=== PATIENT | female | born 1950 | race Caucasian/White ===

== ENCOUNTER 2021-05-13 09:14 | Outpatient (CLI) | payer MEDICARE, OTHER, SELFPAY ==
--- NOTE | ~2021-05-13 | CT_ITS ---
EXAMINATION: CT abdomen w con DATE: 05/13/2021 09:58 INDICATION: Right upper quadrant abdominal pain. TECHNIQUE: Computed tomography (CT) of the abdomen was performed with 100 mL Omnipaque 350 intravenou s contrast. Automated exposure control and iterative reconstruction technique were employed. The dose -length product was 621.86 mGy-cm. COMPARISON: None. FINDINGS: The visualized portions of the lung bases demonstrate demonstrate minimal atelectasis. Ther e is a peripheral 5 mm nodule in right middle lobe, likely benign. No pleural effusion. The heart siz e is normal. No pericardial effusion. Breast implants are noted. There is a small sliding hiatal jose antonio ia. The liver, gallbladder, spleen, pancreas, and adrenal glands are normal. There are cysts in the k idneys including peripelvic cysts measuring up to 13 mm on the left. There is diverticulosis of the c olon without evidence of diverticulitis. There are no dilated loops of bowel. There are no pathologic ally enlarged lymph nodes. There is no free intraperitoneal fluid. There is moderate lumbar spondylos is and mild thoracic spondylosis. IMPRESSION: 1. Small sliding hiatal hernia. Reviewed, dictated and finalized at location A.
[2021-05-13 09:54] LABS: Estimated Glomerular Filt Rate > 60
== END 2021-05-13 09:15 | disposition home or self-care (01) ==
LOC: ANHIMG 09:19
PROVIDERS: PCP Family Medicine Adolescent Medicine; Visit Provider Family Medicine Adolescent Medicine
DX: R10.11 Right upper quadrant pain (principal); Z85.3 Personal history of malignant neoplasm of breast; K44.9 Diaphragmatic hernia without obstruction or gangrene
CPT/HCPCS: 74160; Q9967